=== PATIENT | male | born 1980 | race Caucasian/White ===

== ENCOUNTER 2023-03-31 21:12 | Emergency (ER) | payer BC ==
[2023-03-31] MEDS ORDERED: Lidocaine 1% PF 5 ML VIAL ONE (21:39)
[2023-03-31] MEDS ORDERED: Bacitracin 1 PK ONE (21:40)
[2023-03-31] MEDS ORDERED: HYDROcodone/Acetaminophen 10/325 mg Tablet ONE (21:50)
== END 2023-03-31 22:01 | disposition home or self-care (01) ==
LOC: BURERS 21:12
DX: S01.81XA Laceration without foreign body of other part of head, initial encounter (principal); W22.8XXA Striking against or struck by other objects, initial encounter
CPT/HCPCS: 12011